=== PATIENT | female | born 1975 | race Caucasian/White ===

== ENCOUNTER → 2018-06-07 09:33 | Outpatient (CLI) | payer MEDICAID, SELFPAY ==
--- NOTE | 2018-06-07 09:39 | RAD_ITS ---
STUDY: X-RAY - PELVIS AND RIGHT HIP REASON FOR EXAM: Female, 43 years old. Right hip pain TECHNIQUE: Radiological exam, hip, unilateral, with pelvis when performed; 2 or 3 views. COMPARISON: None. FINDINGS: There is a non-specific bowel gas pattern. Normal visualized soft tissue structures. There is a transitional vertebrae of the lumbosacral junction. Normal bilateral superior and inferior pubic rami. There are degenerative changes of the pubic symphysis with articular narrowing and sclerosis. Normal bilateral ischial tuberosities. Normal visualized femoral head. Normal acetabulum. Normal hip joint. RAD/HIP, UNI W/ Pelvis 2-3 Views IMPRESSION: Degenerative changes with sclerosis of the symphysis pubis. Transitional vertebrae at the lumbosacral junction. The osseous structures and articular surfaces of the right hip joint appear within normal limits. Electronically Signed: Froilan Alston MD at 16:53 EDT , Service support ,
[2018-06-07 09:56] LABS: Bacteria 0 SEEN /hpf (None Seen); Mucous, Urine 0 SEEN /hpf (<or=2+)
[2018-06-07 12:14] LABS: Absolute Lymphocyte Count 1.59 X10^3/ul (0.83-4.51); Absolute Neutrophil Count 5.3 X10^3/uL (2.0-7.7); Basophil# 0.04 X10^3/uL; Basophil% 0.5 % (0-1); Eosinophil# 0.15 X10^3/uL; Hematocrit 39.1 % (37-47); Hemoglobin 13.4 g/dl (12.0-15.0); Lymphocyte # 1.59 X10^3/ul (4.0); Lymphocyte % 20.8 % (19-41); Mean Corp Hgb Conc 34.3 g/gl (32-36); Mean Corpuscular Hgb 33.8 pg (27.0-32.0); Mean Corpuscular Volume 98.7 fL (81-99); Mean Platelet Vol. 9.8 fl (6.2-12.0); Monocyte% 7.9 % (0-10); Neutrophil # 5.25 X10^3/uL (2.7-7.7); Neutrophil % 68.7 % (47-70); Platelet Count 236 K/mm3 (150-450); RBC Distribution Width CV 12.3 % (11.6-14.6); Red Blood Count 3.96 M/mm3 (4.2-5.4); White Blood Count 7.6 K/mm3 (4.4-11.0)
[2018-06-07 12:29] LABS: POSITIVE COUNT NO; POSITIVE DIFFERENTIAL NO; POSITIVE MORPHOLOGY NO
[2018-06-07 12:59] LABS: ALB/GLOB Ratio 1.1 RATIO (0.9-2.4); AST(SGOT) 25 U/L (15-37); Alanine Aminotransfer ALT/SGPT 26 U/L (13-56); Albumin, Serum 4.3 g/dL (3.2-5.0); Alkaline Phosphatase 58 U/L (45-117); Anion Gap 10 (5-15); BUN 12 mg/dL (7-18); BUN/Creat Ratio 14.2 RATIO (10-20); Calcium,Total 9.5 mg/dL (8.5-10.1); Chloride 102 mmol/L (98-107); Creatinine, Serum 0.84 mg/dL (0.55-1.02); EST Glomerular Filtration Rate 78 mL/min (>60); Est Glom Filt Rate - Afr Amer 94 mL/min (>60); Globulin 3.8 g/dL (2.2-4.2); Glucose 83 mg/dL (74-106); Potassium 3.9 mmol/L (3.5-5.1); Protein, Total 8.1 g/dL (6.4-8.2); Sodium Level 137 mmol/L (136-145)
[2018-06-07 13:09] LABS: HIV - WCH Non-Reactive (Nonreactive)
[2018-06-07 14:58] LABS: Color, Urine Yellow (Yellow); Glucose, Dipstick Normal (Normal); Ketone-Dipstick 15 mg/dl (Negative); Leukocyte Esterase-Dipstick 25 /ul (Negative); Nitrite-Dipstick Negative (Negative); Occult Blood-Urine 150 /ul (Negative); Protein-Dipstick 15 mg/dl (Negative); Urine Bilirubin Dipstick Negative (Negative); Urine Clarity Sl Cldy (Clear); Urine Urobilinogen Normal (Normal)
[2018-06-07 15:01] LABS: Red Blood Cells-Urine 0-5 SEEN /hpf (0-5); Squamous Epithelial Cells - UA 0-5 SEEN /hpf (5-10); White Blood Cells 0-5 SEEN /hpf (0-5)
[2018-06-07 15:07] LABS: Amphetamine Urine VISTA POSITIVE (<1000 ng/mL); Barbiturate Urine VISTA NEGATIVE (< 200 ng/mL); Benzodiazepine Urine VISTA NEGATIVE (< 200 ng/mL); Cocaine Urine VISTA NEGATIVE (< 300 ng/mL); Ecstacy Urine VISTA NEGATIVE (< 500 ng/mL); Methadone Urine VISTA NEGATIVE (< 300 ng/mL); PCP Urine VISTA NEGATIVE (< 25 ng/mL); THC Urine VISTA POSITIVE (< 50 ng/mL); Vista UDS pH Range 5
[2018-06-07 16:46] LABS: Chlamydia Trachomatis by PCR Negative (Negative); Neisserai gonorrhoeae by PCR Negative (Negative); Probe Check PASS; Sample Adequacy Control PASS; Specimen Processing Control PASS
[2018-06-08 05:44] LABS: Rapid Plasmin Reagin (RPR) NONREACTIVE (NONREACTIVE)
[2018-06-13 13:37] LABS: HEPATITIS B SURFACE AG Negative (Negative); Hep B Surface Antibodies Non Reactive (.); Hep C Antibodies <0.1 s/co ratio (0.0-0.9); Vitamin B1, Thiamine 95.2 nmol/L (66.5-200.0)
== END ==
PROVIDERS: Family Provider Family Medicine; PCP Family Medicine; Referring Provider Family Medicine; Visit Provider Family Medicine
DX: M25.551 Pain in right hip (principal); F10.10 Alcohol abuse, uncomplicated; Z11.3 Encounter for screening for infections with a predominantly sexual mode of transmission; Z72.0 Tobacco use
CPT/HCPCS: 36415; 73502; 80053; 80307; 81001; 82746; 84425; 85025; 86592; 86703; 86706; 86803; 87340; 87491; 87591

== ENCOUNTER → 2020-02-20 08:20 | Outpatient (CLI) | payer MEDICAID, SELFPAY ==
--- NOTE | 2020-02-20 08:30 | RAD_ITS ---
STUDY: X-RAY - LEFT WRIST REASON FOR EXAM: Female, 44 years old. PAIN X1 YR S/P STUBBING INJURY TECHNIQUE: 3 view(s) of the wrist were obtained. COMPARISON: None. FINDINGS: Normal visualized distal radius and ulna. Normal radiocarpal articulation. Normal distal radioulnar articulation. Normal carpal bones. Normal carpal articulations. Normal carpometacarpal articulation of the thumb. Normal second through fifth carpometacarpal articulations. Normal visualized metacarpal bones. The soft tissue structures are unremarkable. RAD/Wrist min 3 Views IMPRESSION: Normal x-ray examination of the wrist. Electronically Signed: Rob Norton MD at 8:59 EDT , Service support ,
== END ==
PROVIDERS: PCP Family Medicine; Referring Provider Family Medicine; Visit Provider Family Medicine
DX: M25.532 Pain in left wrist (principal)
CPT/HCPCS: 73110

== ENCOUNTER → 2020-11-25 | Outpatient (CLI) | payer MEDICAID, SELFPAY ==
[2020-11-25 08:18] VITALS: BMI 22.8
--- NOTE | 2020-11-25 08:20 | EMB_PTH ---
PATIENT: EDWINA PRETTY LOC: [facility] U#:[id number] AGE/SX: 45/F ROOM: RE11/25/[address]: NINO Sherman : 1975 BED: DIS: 11/25/2020 SPEC #: [id number] RECD: 11/25/20 13:28 STATUS: JUDD MAXIME #: [id number] TIMI: 11/25/20 08:[address]: Felicity Alvarado NP DEPT: SURGICAL PATHOLOGY RECD BY: Ashwini Faith ENTERED: 11/26/20 07:16 SP TYPE: ENDOM BX/C KAL DR: No Primary Care Phys Tissues: Endometrium, NOS Procedures: Surgery Specimen Level IV HEADER OPERATION: Endometrial biopsy PRE-OP DIAGNOSIS: Abnormal uterine bleeding TISSUE SUBMITTED: Endometrial biopsy MICROSCOPIC DIAGNOSIS Endometrial biopsy: Proliferative endometrium. SJ:nicola 11/27/2020 MICROSCOPIC DESCRIPTION Slides are reviewed. GROSS DESCRIPTION Received is one container labeled with the patient's name and not further designated. The specimen consists of multiple fragments of hemorrhagic soft tissue mixed with almaraz mucoid tissue that in aggregate measure 3 x 2.5 x 0.2 cm. The specimen is totally submitted in one cassette. / SJ:nicola 11/26/20 TC:4 CPT: 74831
== END | disposition home or self-care (01) ==
LOC: LABSPEC 13:40
PROVIDERS: Referring Provider Nurse Practitioner Women's Health; Visit Provider Nurse Practitioner Women's Health
DX: N93.9 Abnormal uterine and vaginal bleeding, unspecified (principal)
CPT/HCPCS: 88305

== ENCOUNTER 2020-12-21 11:27 | Outpatient (RCR) | payer MEDICAID, SELFPAY ==
[2020-12-21 10:55] VITALS: BMI 23.1
[2020-12-21 11:42] LABS: Absolute Lymphocyte Count 2.55 X10^3/uL (0.83-4.51); Absolute Neutrophil Count 4.4 X10^3/uL (2.0-7.7); Basophil# 0.06 X10^3/uL; Basophil% 0.7 % (0-1); Eosinophil# 0.34 X10^3/uL; Eosinophils% 4.2 % (0-5); Hematocrit 42.6 % (37-47); Hemoglobin 14.1 g/dL (12.0-15.0); Lymphocyte # 2.55 X10^3/ul (0.83-4.51); Lymphocyte % 31.8 % (19-41); Mean Corp Hgb Conc 33.1 g/dL (32-36); Mean Corpuscular Hgb 32.5 pg (27.0-32.0); Mean Corpuscular Volume 98.2 fL (81-99); Mean Platelet Vol. 9.1 fl (6.2-12.0); Monocyte# 0.67 X10^3/uL; Monocyte% 8.4 % (0-10); NRBC Flagged by Analyzer 0 % (0-5); Neutrophil # 4.37 X10^3/uL (2.7-7.7); Neutrophil % 54.5 % (47-70); Platelet Count 305 K/mm3 (150-450); RBC Distribution Width CV 11.9 % (11.6-14.6); RBC Distribution Width SD 43.4 fl (35.1-43.9); Red Blood Count 4.34 M/mm3 (4.2-5.4)
[2020-12-21 12:10] LABS: Thyroid Stim Hormone (TSH) 2.67 uIU/mL (0.358-3.74)
== END 2020-12-25 23:59 ==
LOC: PAVLAB 11:27
PROVIDERS: Referring Provider Obstetrics & Gynecology; Visit Provider Obstetrics & Gynecology
DX: N92.1 Excessive and frequent menstruation with irregular cycle (principal)
CPT/HCPCS: 36415; 84443; 85025

== ENCOUNTER 2021-02-09 08:05 | Day surgery (SDC) | payer MEDICAID, SELFPAY ==
[2021-02-01 09:12] VITALS: BMI 23.1
--- NOTE | 2021-02-08 13:14 | EKG12_ITS ---
Test Reason : PREOP Blood Pressure : / mmHG Vent. Rate : 078 BPM Atrial Rate : 078 BPM P-R Int : 148 ms QRS Dur : 074 ms QT Int : 408 ms P-R-T Axes : 081 068 073 degrees QTc Int : 465 ms Normal sinus rhythm Normal ECG Confirmed by ALLEN NARANJO, NOHEMI ([id number]), television news video editor QUYEN BARNARD ([id number]) on 02/09/2021 9:01:43 AM Referred By: Angelic Vicente Confirmed By:NOHEMI VILLA MD
[2021-02-08 15:17] LABS: Absolute Lymphocyte Count 2.02 X10^3/uL (0.83-4.51); Absolute Neutrophil Count 3.4 X10^3/uL (2.0-7.7); Basophil# 0.06 X10^3/uL; Basophil% 0.9 % (0-1); Eosinophil# 0.26 X10^3/uL; Eosinophils% 4.1 % (0-5); Hemoglobin 13.6 g/dL (12.0-15.0); Lymphocyte # 2.02 X10^3/ul (0.83-4.51); Lymphocyte % 31.6 % (19-41); Mean Corp Hgb Conc 33.2 g/dL (32-36); Mean Corpuscular Hgb 32.3 pg (27.0-32.0); Mean Corpuscular Volume 97.4 fL (81-99); Mean Platelet Vol. 9.8 fl (6.2-12.0); Monocyte# 0.61 X10^3/uL; Monocyte% 9.5 % (0-10); NRBC Flagged by Analyzer 0 % (0-5); Neutrophil # 3.42 X10^3/uL (2.7-7.7); Neutrophil % 53.6 % (47-70); Platelet Count 271 K/mm3 (150-450); RBC Distribution Width CV 11.9 % (11.6-14.6); RBC Distribution Width SD 42.6 fl (35.1-43.9); Red Blood Count 4.21 M/mm3 (4.2-5.4); White Blood Count 6.4 K/mm3 (4.4-11.0)
[2021-02-08 15:48] LABS: Magnesium 2.3 mg/dL (1.6-2.6)
[2021-02-09] VITALS (13 sets, daily range): BP systolic 125–169; BP diastolic 83–96; PULSE 60–90; RESP 16–20; TEMP 35.8–36.6; O2SAT 95–100; BMI 23.1
[2021-02-09] MEDS: Celecoxib 200 MG Capsule 400 MG PO (07:00)
[2021-02-09] MEDS: Lactated Ringers 1,000 ML 40 ML IV (07:00)
[2021-02-09] MEDS: Acetaminophen 500 MG Tablet 1000 MG PO ×2 (07:00→14:38)
[2021-02-09] MEDS: Scopolamine 1mg/72hr Patch 1 PATCH TD (07:00)
[2021-02-09] MEDS: dexAMETHasone 10 MG/ML Vial 8 MG IV (07:00)
[2021-02-09] MEDS: Enoxaparin 40 MG/0.4 ML Syringe SC (07:00)
[2021-02-09] MEDS: Phenazopyridine 95 MG Tablet 190 MG PO (07:00)
--- NOTE | 2021-02-09 07:26 | PCM.HP.BLA ---
History and Physical Date of Admission: 02/09/21 [facility] [id number] [place] [address] [phone] OFFICE VISITDate of Service: 02/01/21 MR#:[id number]:[id number]: EDWINA PRETTY [facility] #:[id number]:[id number] Provider:Dr. Angelic Vicente, NIAge/Sex: 45/F [facility] Int[facility] Vital Signs 02/01/21 09:10 02/01/21 09:12 Height 5 ft 6 in Weight: 139 lb BMI 22.4 23.1 BP 128/82 H Intake Visit Reasons: [facility] medicaid consent needs signed Chief Complaint: TV BS pre op Is patient in pain?: No Allergies No Known Allergies Allergy (Verified 12/21/20 10:55) Medications ascorbic acid (vitamin C) 500 mg capsule mg PO 11/25/20 [History Confirmed 02/01/21] biotin 5 mg capsule 5 mg PO DAILY 11/25/20 [History Confirmed 02/01/21] omeprazole 10 mg capsule,delayed release 10 mg PO DAILY 11/25/20 [History Confirmed 02/01/21] Is last menstrual period known: No Post menopausal: No Patient : No : No [facility] Medical History Acid reflux Anxiety Depression Ovarian cyst PTSD (post-traumatic stress disorder) Surgical History Tubal ligation status Family History Mother , diagnosis at 46 Breast cancer, Onset Age: 48 Social History Smoking Status: Current every day smoker alcohol intake: current substance use type: marijuana caffeine: Yes what type of physical activity do you participate in: walking seatbelt use: always do you feel safe at home: Yes additional social history: self employed HPI [facility] medicaid consent needs signed Details: EDWINA PRETTY is a 45 year old who presents for irregular heavy menses, h/o 2 . plan TVH BS. Female Reproductive History Cycle Length: 21-35 (irregular) Bleeding Duration: 7 associated symptoms: heavy painful Questions: metorrhagia: Yes, sexually active: Yes, dyspareunia: No and PCB: No Menopausal Symptoms: No hot flashes, No night sweats, No weight change, No mood changes, No difficulty concentrating, No sleep problems and No change in libido Pregancy History 2 Elective abortions Hx Para 2 Spontaneous abortions Hx # Term Pregnancies Ectopic pregnancies Hx # Pregnancies Multiple births # of living children ROS Const Constitutional: Denies fatigue, night sweats, weight gain or weight loss ENT ENT: Reports system reviewed and no additional complaints, except as documented Cardio Card: Denies chest pain Resp Resp: Denies cough or dyspnea GI GI: Reports as per HPI; Denies constipation, nausea or vomiting : Denies hot flashes or nipple discharge Musc Musc: Denies arthralgias, back pain or muscle weakness Skin Skin/Breast: Denies alopecia, change in hair, dry skin, breast mass, breast pain, breast skin changes or nipple discharge Neuro Neuro: Reports system reviewed and no additional complaints, except as documented Psych Psych: Reports system reviewed and no additional complaints, except as documented; Denies change in libido or difficulty concentrating Endo Endo: Denies cold intolerance, excessive sweating, heat intolerance or polydipsia Tavo/Lymph Hematologic/Lymphatic: Denies easy bleeding, Denies easy bruising and Denies lymphadenopathy Exam Const General: cooperative, healthy appearing, comfortable, no acute distress and well developed Orientation: alert HENMO Head: normal to inspection and normocephalic Ears: hearing grossly normal bilaterally and external ears normal Nose: external nose normal and nares normal Face and sinus: normal facial exam Neck Neck: normal visual inspection and no lymphadenopathy Thyroid: thyroid normal Chest Chest palpation & inspection: normal inspection of the chest Resp Effort & Inspection: normal respiratory effort Auscultation: clear to auscultation bilaterally Cardio Rate: regular rate Rhythm: regular rhythm Heart Sounds: S1 normal and S2 normal GI Inspection: normal to inspection and non-distended Palpation: soft and no hepatosplenomegaly Musc Other: gross motor intact no deficits, full bilateral strength Skin General: no rashes or lesions noted Neuro General: patient alert, patient awake, moves all extremities and no focal motor deficits Motor: muscle tone normal throughout Extrem General: normal to inspection and no pedal edema Psych Appearance: grossly normal Mental Status: mental status grossly normal Affect: normal affect Speech and Movement: speech and movement normal Coding Level of Care Code No Charge Diagnoses Menorrhagia with irregular cycle N92.1 Assessment and Plan Assessment and Plan (1) Menorrhagia with irregular cycle: Status: Acute Comment: plan SDS. failed OTC medications, not a candidate for hormonal intervention, recommend proceeding with surgical intervention, plan TVHBS. Plan - Dr. Angelic Vicente MD: After discussing the patient's diagnosis and treatment plan options, patient wishes to proceed with surgical management. I have discussed with the patient the risks, benefits, and alternatives of the procedure which include but are not limited to risks of anesthesia, bleeding, infection, possible damage to bowel, bladder, or surrounding vasculature which could lead to additional surgery to evaluate any complications. Patient agrees to procedure and wishes to proceed. ACOG/uptodate references given for additional information regarding procedure. UPDATE- I have seen the patient and performed any clinically relevant updates to the history and physical exam. Angelic Vicente MD Assessment & Plan Assessment/Plan (1) Menorrhagia with irregular cycle:
[2021-02-09] MEDS: Gabapentin 600 MG Tablet PO (09:08)
[2021-02-09 09:31] LABS: Bedside Glucose 75 mg/dL (70-110)
--- NOTE | 2021-02-09 10:14 | PCM.OPRPT ---
Problems Associated Problem List Diagnoses (1) Menorrhagia with irregular cycle: Report of Operation Date of Procedure: 02/09/21 Pre-Operative Diagnosis: see problem list Post-Operative Diagnosis: same Surgery/Procedure Performed:: TVH BS brazing machine feeder: Claudia Roman Type of Anesthesia: General Specimen's removed: uterus, tubes Drains: peacock Estimated Blood Loss (mL): 100 Fluids Replaced: crystalloid Description of Procedure: Patient was taken to the operating room and was placed under general anesthesia was prepped and draped in normal sterile fashion in the dorsal lithotomy position. Preoperative antibiotics and SCDs and Peacock catheter was placed inside the bladder. Weighted speculum was placed in the vagina and the anterior and posterior lip of the cervix was grasped with 2 Matheus clamps and circumferentially injected with dilute vasopressin. A circumferential incision was made with a scalpel and the posterior cul-de-sac was entered into sharply and a longneck speculum was placed. The anterior cul-de-sac was also dissected down and entered into sharply and the uterosacral ligaments were clamped cut and suture ligated bilaterally followed by the cardinal ligaments which were Clamped cut and suture ligated bilaterally with 0 Monocryl. The uterus serially descended and progressive bites were taken bilaterally up to the level of the utero-ovarian ligament bilaterally which was clamped transected and double ligated with 0 Monocryl suture and 0 Vicryl free tie. Bilateral fallopian tubes and ovaries were well visualized and noted be within normal limits and the bilateral fallopian tubes were transected across the base with a Cait clamp and removed and sutured with 0 Vicryl suture. Excellent hemostasis was noted. Posterior peritoneum was reapproximated with 2-0 Vicryl and a modified Doss stitch was placed through the posterior vaginal cuff and bilateral uterosacral ligaments across the posterior cul-de-sac skimming along to provide apical support to the vagina. The vagina was closed with [id number] 0 Vicryl pop offs including the posterior and anterior peritoneum in the reapproximation. Excellent hemostasis was noted. All instruments removed from the vagina clear urine was noted at the end of the procedure and patient was awoken and taken recovery in stable condition. Grafts/Implants Used: none Complications none Admit VTE Documentation VTE Present on Admission: No VTE Mechan Device Prophylaxis: SCD's VTE Pharm Prophylaxis ordered?: Yes Procedures Urinary/Genital 52xxx-59xxx: 36162 TVH+BS/O <250gr uterus
--- NOTE | 2021-02-09 10:15 | HYST_PTH ---
PATIENT: EDWINA PRETTY [place] [facility][id number] AGE/SX: 45/F ROOM: RE02/09/[address]: Dr. Angelic Vicente MD : 1975 BED: DIS: 02/09/2021 SPEC #: [id number] RECD: 02/09/21 12:23 STATUS: JUDD MAXIME #: [id number] TIMI: 02/09/21 10:[address]: Angelic Vicente DEPT: SURGICAL PATHOLOGY RECD BY: Ashwini Faith ENTERED: 02/09/21 12:38 SP TYPE: HYSTERECT OTHR DR: No Primary Care Phys Tissues: Uterus, NOS Procedures: Surgery Specimen Level V HEADER OPERATION: ERAS, vaginal hysterectomy, bilateral salpingectomy PRE-OP DIAGNOSIS: Menorrhagia with irregular cycle TISSUE SUBMITTED: Uterus, bilateral fallopian tubes MICROSCOPIC DIAGNOSIS Uterus, hysterectomy: Cervix ? nabothian cysts and minimal chronic inflammation. Endometrium ? proliferative endometrium. Myometrium ? focal superficial adenomyosis. Right and left fallopian tubes ? benign paratubal cysts. AM:nicola 02/10/2021 MICROSCOPIC DESCRIPTION Slides are reviewed. GROSS DESCRIPTION Received in fixative is one container labeled with the patient's name and designated uterus and bilateral fallopian tubes. The specimen consists of a hysterectomy specimen consisting of uterus with cervix and detached bilateral fallopian tubes. The uterus with cervix weighs 112 gm and measures 10.5 x 6 x 5 cm. The serosal surface is almaraz, glistening. The ectocervical mucosa is unremarkable. The external os is circular in contour. The endocervical canal measures 3.5 cm in length and the endocervical mucosa is almaraz, glistening and unremarkable. The triangular endometrial cavity measures 5 cm in length and 2.5 cm in width. The endometrium is almaraz, glistening without any mass lesion and measures 0.2 cm in thickness. Sections of the uterine wall do not reveal any mass lesion and measures up to 2.5 cm in thickness. Also present in the container are detached bilateral fallopian tubes. The fallopian tubes are not identified as right or left. One of the portion of fallopian tubes consists only of fimbrial end and measures 1 x 1.5 x 0.4 cm. A paratubal cyst is noted measuring 1.5 cm in greatest dimension and is filled with clear fluid. The second fallopian tube measures 2.8 cm in length and 0.6 cm in diameter. This predominantly consists of fimbrial end. Airbrush Artist Technical sections are submitted in eight cassettes as follows: 1 - anterior cervix, 2??posterior cervix, 3 & 4 - anterior uterine wall, 5 & 6 - posterior uterine wall, 7 ? one fallopian tube and paratubal cyst, 8 ? the second fallopian tube. The fallopian tubes are submitted in entirety. / TIMO:nicola 02/09/21 TC:5 CPT: 96864
[2021-02-09] MEDS: Cefazolin 2 GM in 0.9% Normal Saline 100 ML IV (10:25)
[2021-02-09] MEDS: Vasopressin 20 UNITS/ML Vial (10:55)
[2021-02-09] MEDS: Lactated Ringers 1,000 ML 70 ML IV (11:15)
--- NOTE | 2021-02-09 12:31 | PCM.DC ---
Discharge Instructions Diet Discharge Diet: No restrictions Activity May resume sexual activity in: 6 weeks Weight Bearing Status: Full weight bearing Dressing / Incision Call your doctor if your incision/area has: Continuous Slow Oozing, Sudden Increased Bleeding, Increased Pain/ Swelling, Increased Redness and Foul Smelling Discharge Call your doctor if you observe: Fever of 101 or Higher, Using more than 1 pad per hour, Shortness of breath, Chest pain and Uncontrolled pain Suture Line Care: Avoid Pulling/Pushing and Avoid Pinching/Bending Remove Dressing in: 1 week (if present) Cleanse incision/area with: Soap & Water and Keep Dressing Clean & Dry Follow Up Care Please Follow Up With: Angelic Vicente MD When: Call to make an appointment with your doctor for a postop visit in 2 and 6 weeks. Test Results: Test results from this visit will be discussed in further detail at your follow-up appointment, if applicable. Discharge Plan Admission Primary Reason for Your Visit: hysterectomy Attending Provider: Angelic Vicente Primary Care Provider: Care Physician,No Primary Discharge Orders/Prescriptions Prescriptions: New naproxen 250 MG tablet 250 - 500 mg PO Q8H PRN PRN (Reason: MILD PAIN) Qty: 30 RF: 1 oxycodone-acetaminophen [Endocet] 5-325 mg tablet 1 tab PO Q4H PRN (Reason: pain) 7 Days Qty: 20 RF: 0 Continued ascorbic acid (vitamin C) 500 mg capsule 500 mg PO DAILY RF: 0 biotin 5 mg capsule 5 mg PO DAILY RF: 0 omeprazole 10 mg capsule,delayed release(DR/EC) 10 mg PO DAILY RF: 0 Referrals / Follow Up: Angelic Vicente MD [STAFF PHYSICIAN] - Care Physician,No Primary [Primary Care Provider] - Disposition Disposition (needs filled in before D/C Order can be placed): Home, self care
[2021-02-09] MEDS: Ondansetron 4 MG/2 ML Vial IV (12:41)
[2021-02-09] MEDS: Ketorolac 30 MG/ML Syringe IV (12:41)
[2021-02-09 13:12] LABS: Hemoglobin 12.8 g/dL (12.0-15.0); Mean Corp Hgb Conc 33.7 g/dL (32-36); Mean Corpuscular Hgb 32.5 pg (27.0-32.0); Mean Corpuscular Volume 96.4 fL (81-99); Mean Platelet Vol. 9.4 fl (6.2-12.0); Platelet Count 233 K/mm3 (150-450); RBC Distribution Width CV 11.8 % (11.6-14.6); RBC Distribution Width SD 41.9 fl (35.1-43.9); Red Blood Count 3.94 M/mm3 (4.2-5.4); White Blood Count 9.5 K/mm3 (4.4-11.0)
== END 2021-02-09 16:42 | disposition home or self-care (01) ==
LOC: SDC 08:06 → AC 08:06
PROVIDERS: Anesthesiology; Referring Provider Obstetrics & Gynecology; Visit Provider Obstetrics & Gynecology
PROC: (CPT 58260; principal; 2021-02-09 09:55)
DX: N72 Inflammatory disease of cervix uteri (principal); N80.0 Endometriosis of uterus; N88.8 Other specified noninflammatory disorders of cervix uteri; N83.8 Other noninflammatory disorders of ovary, fallopian tube and broad ligament; F17.200 Nicotine dependence, unspecified, uncomplicated; K21.9 Gastro-esophageal reflux disease without esophagitis; Z79.899 Other long term (current) drug therapy; Z20.822 Contact with and (suspected) exposure to COVID-19
CPT/HCPCS: 00944; 58262; 36415; 82962; 83735; 85025; 85027; 86850; 86900; 86901; 87426; 88307; 93005; C9803; J7120; J2405

== ENCOUNTER → 2021-05-06 | Outpatient (CLI) | payer MEDICAID, SELFPAY | END | disposition home or self-care (01) | LOC: LABSPEC 14:57 | PROVIDERS: Referring Provider Nurse Practitioner Women's Health; Visit Provider Nurse Practitioner Women's Health | DX: R30.0 Dysuria (principal) | CPT/HCPCS: 87086; 87088; 87186 ==

== ENCOUNTER → 2022-04-11 | Outpatient (CLI) | payer MEDICAID, SELFPAY ==
[2022-04-13 22:06] LABS: Chlamydia By Nucleic Acid AMP Negative (Negative)
[2022-04-14 07:41] LABS: Gonococcus By Nucleic Acid AMP Negative (Negative)
== END | disposition home or self-care (01) ==
LOC: LABSPEC 12:26
PROVIDERS: Referring Provider Nurse Practitioner Women's Health; Visit Provider Nurse Practitioner Women's Health
DX: N76.0 Acute vaginitis (principal); Z11.3 Encounter for screening for infections with a predominantly sexual mode of transmission; R30.9 Painful micturition, unspecified
CPT/HCPCS: 87070; 87086; 87088; 87205; 87491; 87591

== ENCOUNTER 2025-05-01 18:47 | Emergency (ER) | payer MEDICAID, SELFPAY ==
[2025-05-01 18:48] VITALS: BP 133/88; PULSE 92; RESP 18; TEMP 36.6; O2SAT 99; BMI 29.0
[2025-05-01 18:49] VITALS: BP 133/88; PULSE 92; RESP 18; TEMP 36.6; O2SAT 98
[2025-05-01 19:05] LABS: Hematocrit 40.0 % (37-47); Hemoglobin 13.7 g/dL (12.0-15.0); Immature Granulocytes Count 0.040 X10^3/uL (0.0-0.0); Mean Corp Hgb Conc 34.3 g/dL (32-36); Mean Corpuscular Volume 90.5 fL (81-99); Mean Platelet Vol. 10.5 fl (6.2-12.0); NRBC Flagged by Analyzer 0 % (0-5); Platelet Count 238 K/mm3 (150-450); RBC Distribution Width CV 13.0 % (11.6-14.6); RBC Distribution Width SD 43.2 fl (35.1-43.9); Red Blood Count 4.42 M/mm3 (4.2-5.4); White Blood Count 8.6 K/mm3 (4.4-11.0)
[2025-05-01 19:30] LABS: AST(SGOT) 47 U/L (<=31); Alanine Aminotransfer ALT/SGPT 22 U/L (<=34); Albumin, Serum 4.1 g/dL (3.5-5.0); Alkaline Phosphatase 65 U/L (35-104); Anion Gap 13 (5-15); BUN 10 mg/dL (4-19); BUN/Creat Ratio 11.1 RATIO (10-20); Calcium,Total 9.6 mg/dL (7.6-11.0); Carbon Dioxide 19.1 mmol/L (21.0-32.0); Chloride 104 mmol/L (98-108); Estimated Creatinine Clearance 84.31 ml/min (50-250); Globulin 3.3 g/dL (2.2-4.2); Glucose 133 mg/dL (70-99); Potassium 4.6 mmol/L (3.3-5.1)
[2025-05-01 20:14] LABS: Mucous, Urine 0 SEEN /hpf (<or=2+)
[2025-05-01 20:25] LABS: Color, Urine Straw (Yellow); Glucose, Dipstick Normal (Normal); Ketone-Dipstick Negative (Negative); Leukocyte Esterase-Dipstick Negative /ul (Negative); Nitrite-Dipstick Negative (Negative); Occult Blood-Urine 50 /ul (Negative); Protein-Dipstick Negative (Negative); Specific Gravity, Urine 1.010 (1.002-1.030); Urine Bilirubin Dipstick Negative (Negative)
[2025-05-01 20:52] VITALS: BP 109/89; PULSE 78; RESP 14; TEMP 37.2; O2SAT 99
--- NOTE | 2025-05-01 21:05 | CT_ITS ---
PROCEDURE: ABDOMEN/PELVIS W IV CONT ONLY 05/01/2025 REASON FOR EXAM: LEFT FLANK PAIN, HX OF PYELO. Blood in urine, back pain since Monday. History of kidney infection, total hysterectomy, bilateral salpingectomy, tubal. TECHNIQUE: Procedure Code: [id number] Modality: CT Procedure: ABDOMEN/PELVIS W IV CONT ONLY Coronal and Sagittal reconstruction series were provided. CONTRAST: Isovue 370 VOLUME: 100 mL One or more dose reduction techniques were used (e.g., Automated exposure control, adjustment of the mA and/or kV according to patient size, use of iterative reconstruction technique. RADIATION DOSE SUMMARY: CTDlvol: 13.30, 17.33 mGy DLP: 894.30 mGycm COMPARISON: None. FINDINGS: LUNG BASES: No basilar airspace consolidation or pleural effusion. Minimal dependent atelectasis bilaterally. LIVER: Unremarkable. GALLBLADDER: Unremarkable. No calcified stone. BILE DUCTS: No ductal dilation. PANCREAS: Unremarkable. SPLEEN: Unremarkable. ADRENAL GLANDS: Unremarkable. KIDNEYS: Unremarkable. The kidneys enhance symmetrically. No hydronephrosis or hydroureter. No perinephric inflammatory changes. STOMACH AND BOWEL: No obstruction or perforation. No wall thickening. No CT evidence of colitis or acute diverticulitis. APPENDIX: Normal-appearing appendix. No CT evidence for appendicitis. RETRO/PERITONEUM: No free fluid. No free air. LYMPH NODES: No lymphadenopathy. PELVIC ORGANS: Unremarkable urinary bladder and ovaries. Prior hysterectomy. VASCULATURE: No aortic aneurysm. ABDOMINAL WALL AND SOFT TISSUES: Small fat-containing umbilical and bilateral indirect inguinal hernias. BONES: No fracture or suspicious osseous abnormality. CT/Abdomen/Pelvis W IV Cont ONLY IMPRESSION: NO ACUTE FINDINGS IN THE ABDOMEN OR PELVIS. Reading Location: [id number]
[2025-05-01 21:07] LABS: Red Blood Cells-Urine 0-5 SEEN /hpf (0-5); Squamous Epithelial Cells - UA 0-5 SEEN /hpf (5-10)
[2025-05-01 21:52] VITALS: BP 125/75; PULSE 67; RESP 16; TEMP 37.1; O2SAT 100
--- NOTE | 2025-05-01 21:59 | ED.VIS.FEGU ---
HPI HPI - Female History of Present Illness Chief Complaint: Complaint Narrative Narrative: Patient is a 49-year-old female presenting to the emergency department for left sided flank pain. Patient has a past medical history as below including pyelonephritis. Patient states that she has been having the left-sided flank pain since Monday. It is constant. She endorses some nausea with no vomiting. Denies any fever or chills. Denies any abdominal pain, diarrhea or constipation. She endorses decreased urination over the past few days. States she went to urgent care to be evaluated and they did a urine test that showed blood so they sent her here. She has been doing Tylenol, Motrin, heating pads for pain at home. Initially thought it was musculoskeletal but wanted to make sure it wasn't my kidneys. PFSH [facility] Medical History Wears hearing aid Wears glasses Alcohol use Marijuana use Low iron Back pain Migraine headache Gastric reflux Smoker Ovarian cyst PTSD (post-traumatic stress disorder) Depression Anxiety Home Medications ?Medication ?Instructions ?Recorded ?Last Taken ?Type ascorbic acid (vitamin C) 500 mg 500 mg PO DAILY 11/25/20 Unknown History capsule biotin 5 mg capsule 5 mg PO DAILY 11/25/20 Unknown History omeprazole 10 mg capsule,delayed 10 mg PO DAILY 11/25/20 Unknown History release cholecalciferol (vitamin D3) 25 25 mcg PO DAILY 09/08/21 Unknown History mcg (1,000 unit) capsule fluconazole 150 mg tablet 150 mg PO .COMPLEX #2 tabs 04/11/22 Unknown Rx metronidazole 500 mg tablet 500 mg PO .COMPLEX #4 tabs 04/11/22 Unknown Rx Allergy/AdvReac Type Severity Reaction Status Date / Time No Known Allergies Allergy Verified 05/01/25 18:49 Family History Mother , diagnosis at 46 Breast cancer, Onset Age: 48 Surgical History H/O bilateral salpingectomy History of total vaginal hysterectomy (TVH) Hx of myringotomy Tubal ligation status Social History Smoking Status: Current every day smoker tobacco type: cigarettes alcohol intake: current substance use type: marijuana caffeine: Yes what type of physical activity do you participate in: walking seatbelt use: always do you feel safe at home: Yes additional social history: self employed ROS ROS ED ROS Narrative see HPI EXAM Physical Exam Narrative Exam Narrative: Vital signs: Reviewed General: Alert and orientedx3. No acute distress HEENT: Head is normocephalic and atraumatic, sinuses nontender, pupils equal round and reactive. Nares are patent. Oropharynx and throat exams normal. Neck: Supple without lymphadenopathy nontender Cardiovascular: Regular rate and rhythm, no murmurs. No rubs or gallops. Normal S1 and S2 Respiratory: Clear to auscultation bilaterally. No wheezes, rales, rhonchi Abdominal: Soft and nontender. Normal bowel sounds. No guarding or rebound. Nonsurgical abdomen. Lower left lumbar paraspinal tenderness to palpation. No CVA tenderness to palpation. Extremities: No midline thoracic or lumbar spinal tenderness to palpation. No step off or deformities. No tenderness. No bruising. Normal range of motion. Normal sensation. Skin: No rash or redness. Neurological: Cranial nerves II through XII are grossly intact. Normal strength and sensation. Normal cerebellar function The rest of the physical exam is unremarkable Const Vital Signs: 05/01/25 18:48 05/01/25 18:49 05/01/25 20:52 Temperature 98 F 98 F 98.9 F Temperature Source Oral Oral Oral Pulse Rate 92 92 78 Respiratory Rate 18 18 14 Blood Pressure 133/88 H 133/88 H 109/89 H Blood Pressure Mean 103 103 95 Pulse Ox 99 98 99 Oxygen Delivery Method Room Air Room Air Room Air 05/01/25 21:52 Temperature 98.7 F Temperature Source Oral Pulse Rate 67 Respiratory Rate 16 Blood Pressure 125/75 H Blood Pressure Mean 91 Pulse Ox 100 Oxygen Delivery Method Room Air MDM MDM MDM Narrative Medical decision making narrative: Patient is a 49-year-old female presenting to the emergency department for left-sided flank pain. Patient was seen and examined. Vitals are stable. Patient resting in bed comfortably in no acute distress. Differential includes but is not limited to: Pyelonephritis, nephrolithiasis, UTI, musculoskeletal Patient given Toradol and Zofran. CBC with no leukocytosis and a normal hemoglobin. CMP with mildly elevated AST of 47 otherwise no significant abnormalities. Urinalysis with occult blood no evidence of infection. No bacteria, WBCs, nitrites, leukocyte esterase. CT shows no acute findings in the abdomen or pelvis. Patient updated on negative workup. Pain is improved after analgesia. Instructed to continue using her RICE therapies at home. Patient discharged from the Emergency Department. I do not feel that the patient's evaluation reveals any acute reason for admission at this time. I instructed them to either follow-up with their primary care physician or promptly return to the Emergency Department for reevaluation should symptoms worsen or new symptoms develop. I explained what symptoms would indicate the need to return to the emergency department. Shared decision making was used. The patient voiced understanding of the treatment plan and is agreeable with it. Clinical impression Left flank pain History & Record Review Discussion w/independent historian: Patient Lab Data Attestation: I reviewed the patient's lab results. Labs: Laboratory Results - last 24 hr 05/01/25 05/01/25 18:55 19:50 WBC 8.6 RBC 4.42 Hgb 13.7 Hct 40.0 MCV 90.5 MCH 31.0 MCHC 34.3 RDW Std Deviation 43.2 RDW Coeff of [place] 13.0 Plt Count 238 MPV 10.5 Immature Gran % (Auto) 0.500 Neut % (Auto) 56.3 Lymph % (Auto) 34.4 Clay % (Auto) 4.6 Eos % (Auto) 3.4 Baso % (Auto) 0.8 Absolute Neuts (auto) 4.9 Absolute Lymphs (auto) 2.96 Nucleated RBC % 0 Sodium 136 Potassium 4.6 Chloride 104 Carbon Dioxide 19.1 L Anion Gap 13 BUN 10 Creatinine 0.86 Estim Creat Clear Calc 84.31 Est GFR (MDRD) Non-Af 82 BUN/Creatinine Ratio 11.1 Glucose 133 H Calcium 9.6 Total Bilirubin 0.21 AST 47 H ALT 22 Alkaline Phosphatase 65 Total Protein 7.4 Albumin 4.1 Globulin 3.3 Albumin/Globulin Ratio 1.3 Urine Color Straw Urine Clarity Clear Urine pH 6.5 Ur Specific [place] 1.010 Urine Protein Negative Urine Glucose (UA) Normal Urine Ketones Negative Urine Occult Blood 50 H Urine Nitrite Negative Urine Bilirubin Negative Urine Urobilinogen Normal Ur Leukocyte Esterase Negative Urine RBC 0-5 SEEN Urine WBC 0-5 SEEN Ur Squamous Epith Cells 0-5 SEEN Urine Bacteria 0 SEEN Urine Mucus 0 SEEN Radiography Diagnostic Testing: Clinical Impression(s) from Imaging Studies Abdomen/Pelvis CT 05/01/25 21:05 IMPRESSION: NO ACUTE FINDINGS IN THE ABDOMEN OR PELVIS. Reading Location: [facility] Discharge Plan Triage Chief Complaint: Complaint ED Provider: Rachel Herrera Dx/Rx/DC Orders Clinical Impression: Acute left flank pain Instructions: ED Flank Pain with Uncertain Cause Prescriptions: No Action ascorbic acid (vitamin C) 500 mg capsule 500 mg PO DAILY biotin 5 mg capsule 5 mg PO DAILY omeprazole 10 mg capsule,delayed release(DR/EC) 10 mg PO DAILY cholecalciferol (vitamin D3) 25 mcg (1,000 unit) capsule 25 mcg PO DAILY fluconazole 150 mg tablet 150 mg PO .COMPLEX Qty: 2 0RF Rx Instructions: 150 mg PO take one po now and repeat in 3 days metronidazole 500 mg tablet 500 mg PO .COMPLEX Qty: 4 0RF Rx Instructions: 500 mg PO 2 tab now and repeat in 12 hours Primary Care Provider: Joe Cortez,Out of Referrals: Rosalia Buchanan MD [Med Staff - [employer]] - 2 Days Joe Cortez,Out of [Primary Care Provider] - Activity Restrictions/Additional Instructions: Your evaluation in the Emergency Department did not reveal any acute reason for admission. However, I want to emphasize that you may be early in the course of a disease process or illness even if it is not present. For this reason you should follow-up within 24 hours for reevaluation with either your primary care physician or if necessary back here in the Emergency Department. You should return to the Emergency Department immediately if your symptoms worsen or new symptoms develop. Print Language: Hebrew Disposition Disposition: Home, Self Care
[2025-05-01 22:54] VITALS: BP 123/83; PULSE 69; RESP 12; TEMP 36.3; O2SAT 100
== END 2025-05-01 22:54 | disposition home or self-care (01) ==
PROVIDERS: Emergency Provider Student in an Organized Health Care Education/Training Program; Visit Provider Student in an Organized Health Care Education/Training Program
DX: R10.9 Unspecified abdominal pain (principal); K21.9 Gastro-esophageal reflux disease without esophagitis; F17.210 Nicotine dependence, cigarettes, uncomplicated
CPT/HCPCS: 74177; 80053; 81001; 85025; 96374; 96375; 99283; Q9967; A4216; J2405